=== PATIENT | male | born 1985 | race Caucasian/White ===

== ENCOUNTER 2020-03-08 12:43 | Emergency (ER) | payer BC, SELFPAY ==
[2020-03-08 12:52] VITALS: BP 156/95; PULSE 105; RESP 20; TEMP 36.9; O2SAT 99
--- NOTE | 2020-03-08 13:12 | ED.GENADULT ---
HPI - General Adult General Chief complaint: Allergic Reaction Stated complaint: Swollen upper lip and Cheeks Time Seen by Provider: 03/08/20 13:03 Source: patient and RN notes reviewed Mode of arrival: ambulatory Limitations: no limitations History of Present Illness HPI narrative: Patient presents today complaining of intermittent swelling to his face x2 weeks.This episode started yesterday when he woke up to swelling of his lip. Reports it has improved slightly today. He also reports some hives yesterday that have almost completely resolved. Denies shortness of breath, difficulty swallowing, scratchiness in the throat. Believes his symptoms may be due to extended use of chewing tobacco every day. States similar symptoms have occurred in the past and resolved on their own. He has tried no hxdj-[id number]-gecrivb medication for symptoms prior to arrival.No known allergens. MD complaint: Facial swelling Related Data Home Medications Medication Instructions Recorded Confirmed methylphenidate HCl 10 mg PO TID 06/27/19 06/27/19 omeprazole 20 mg PO DAILY 03/08/20 03/08/20 Allergies Allergy/AdvReac Type Severity Reaction Status Date / Time Penicillins Allergy Unknown Rash Verified 03/08/20 13:18 Review of Systems Review of Systems: Narrative: CONSTITUTIONAL: Denies body aches, fever, chills, or sweats. EYES: Denies visual changes, redness, or discharge. ENT: Denies rhinorrhea, congestion, sore throat, or otalgia.+Facial swelling, lip swelling CARDIOVASCULAR: Denies chest pain, palpitations, or edema. RESPIRATORY: Denies cough or dyspnea. GASTROINTESTINAL: Denies abdominal pain, nausea, vomiting, or diarrhea. GENITOURINARY: Denies dysuria or hematuria. SKIN: Denies rash, itching, or wounds. MUSCULOSKELETAL: Denies back pain, joint pain, or myalgia. NEUROLOGIC: Denies headache, numbness, tingling, or weakness. PSYCH: Denies depression or anxiety. PMFSH Comments At time of signature, I have reviewed and agree with nursing past medical, surgical, social and family history unless otherwise noted. Please see nursing chart for further information. There is no relevant family history pertinent to the presenting complaint Exam Narrative: Exam Narrative: GENERAL: Well-appearing, well-nourished, and in no acute distress. HEAD: Normocephalic, atraumatic. EYES: EOMI. No redness or drainage. Conjunctivae normal. ENT: Mucous membranes pink and moist. Nares clear. No rhinorrhea. TMs normal bilaterally. Throat normal. Uvula midline. Tongue normal. No swelling of the gums. Teeth grossly normal. Very mild swelling of the lips. NECK: Normal AROM. Supple. No lymphadenopathy. CHEST: No respiratory distress. Clear to auscultation. HEART: Regular rate and rhythm. No murmur appreciated. Normal peripheral pulses. EXTREMITIES: Normal range of motion. No edema. SKIN: Warm, dry. Capillary refill normal. Normal skin turgor. 1 small healing hive to right upper arm. NEURO: No focal deficits. Alert and oriented x3. Gait steady. PSYCH: Normal affect. No signs of depression or anxiety. Course Vital Signs Vital signs: Vital Signs Temperature 98.5 F 03/08/20 12:52 Pulse Rate 105 H 03/08/20 12:52 Respiratory Rate 03/08/20 12:52 Blood Pressure 156/95 H 03/08/20 12:52 Pulse Oximetry 99 03/08/20 12:52 Temperature 98.5 F 03/08/20 12:52 Pulse Rate 105 H 03/08/20 12:52 Respiratory Rate 03/08/20 12:52 Blood Pressure 156/95 H 03/08/20 12:52 Pulse Oximetry 99 03/08/20 12:52 Reviewed. Pt has been instructed to follow up with his PCP regarding his elevated blood pressure today. Medical Decision Making Differential Diagnosis Differential Diagnosis: Angioedema, contact dermatitis, anaphylaxis, allergic reaction, hives Vital Signs Vital Signs: Vital Signs Temperature 98.5 F 03/08/20 12:52 Pulse Rate 105 H 03/08/20 12:52 Respiratory Rate 03/08/20 12:52 Blood Pressure 156/95 H 03/08/20 12:52 Pulse O
== END 2020-03-08 13:20 | disposition home or self-care (01) ==
PROVIDERS: Emergency Provider Nurse Practitioner
DX: T78.3XXA Angioneurotic edema, initial encounter (principal); K21.9 Gastro-esophageal reflux disease without esophagitis; F90.9 Attention-deficit hyperactivity disorder, unspecified type
CPT/HCPCS: 99213; G0463

== ENCOUNTER 2023-03-24 08:02 | Emergency (ER) | payer OTHER, SELFPAY ==
[2023-03-24 08:12] VITALS: BP 120/79; PULSE 99; RESP 20; TEMP 36.4; O2SAT 98
--- NOTE | 2023-03-24 08:39 | ED.GENADULT ---
HPI - General Adult General Chief complaint: Unspecified Stated complaint: STD Exposure Source: patient and RN notes reviewed History of Present Illness HPI narrative: 38 yo M presents to urgent care stating he was just told he might have syphilis. Pt states he gave plasma twice last week and when he went today to give again, he was told he might have syphilis. Pt denies any genital lesions, blisters, or rash. Denies any dysuria, penile discharge, fevers, chills, lymph node swelling, abdominal pain, N/V/D, chest pain, or SOB. Pt states he will occasionally get headaches but contributes them to deydration. Pt admits to being homeless currently and recently incarcerated. Related Data Home Medications Medication Instructions Recorded Confirmed omeprazole 20 mg tablet,delayed 20 mg PO DAILY 03/08/20 03/24/23 release Allergies Allergy/AdvReac Type Severity Reaction Status Date / Time Penicillins Allergy Unknown Rash Verified 03/24/23 08:21 Review of Systems Review of Systems: Pertinent positives and pertinent negatives per HPI. PMFSH Comments At the time of my signature, I reviewed and agree with the nursing past medical, surgical, social, and family history. There is no relevant family history pertinent to the patient complaint. Exam Narrative: GENERAL: This is a well-nourished, well-developed patient, in no apparent distress. HEAD: normocephalic, atraumatic. EYES: Sclera clear/white. Vision is grossly intact. EARS: External ears normal, auditory canals clear and without drainage, TMs normal without perforation. Hearing grossly intact. NOSE: External nose normal with no obvious nasal discharge, nares without redness, no rhinorrhea. THROAT: Mucous membranes moist, posterior pharynx clear. NECK: Neck supple, non-tender without lymphadenopathy, masses or thyromegaly. CARDIOVASCULAR: Regular rate and rhythm without murmurs, gallops, or rubs. RESPIRATORY: Clear to auscultation. Breath sounds equal bilaterally. No wheezes, rales, or rhonchi. GASTROINTESTINAL: Abdomen soft, non-tender, nondistended. Bowel sounds are active. No hepato-splenomegaly, or palpable masses. No guarding. SKIN: warm, intact with no suspicious lesions or rash, good texture and turgor. NEURO: awake, alert, and oriented to person, place and time. There were no obvious focal neurologic abnormalities. EXTREMITIES: No clubbing, cyanosis, or edema. No joint tenderness, effusion, or edema noted. BACK: Nontender without deformity or crepitus. No flank tenderness. Course Course Level of Care: Express Care Visit Vital Signs Vital signs: Vital Signs Temperature 97.6 F 03/24/23 08:12 Pulse Rate 99 03/24/23 08:12 Respiratory Rate 20 03/24/23 08:12 Blood Pressure 120/79 03/24/23 08:12 Pulse Oximetry 98 03/24/23 08:12 Oxygen Delivery Room Air 03/24/23 08:12 Temperature 97.6 F 03/24/23 08:12 Pulse Rate 99 03/24/23 08:12 Respiratory Rate 20 03/24/23 08:12 Blood Pressure 120/79 03/24/23 08:12 Pulse Oximetry 98 03/24/23 08:12 Oxygen Delivery Room Air 03/24/23 08:12 Reviewed Medical Decision Making MDM Narrative Medical decision making narrative: Go to the STI clinic as discussed. Be checked as soon as possible for all the sexually transmitted infections. Pt was given the flyer with the STI clinic information on it. Pt was also given money for himself and his girlfriend to catch the bus. Attempted to call clinic for pt and make an appt for pt and it appears pt has left our building without notice. Differential Diagnosis Differential Diagnosis: syphilis, well adult exam, STI Vital Signs Vital Signs: Vital Signs Temperature 97.6 F 03/24/23 08:12 Pulse Rate 99 03/24/23 08:12 Respiratory Rate 20 03/24/23 08:12 Blood Pressure 120/79 03/24/23 08:12 Pulse Oximetry 98 03/24/23 08:12 Oxygen Delivery Room Air 03/24/23 08:12 Temperature 97.6 F 03/24/23 08:12 Pulse Rate
== END 2023-03-24 08:50 | disposition home or self-care (01) ==
PROVIDERS: Emergency Provider Nurse Practitioner Family
DX: Z71.1 Person with feared health complaint in whom no diagnosis is made (principal); Z59.00 Homelessness unspecified
CPT/HCPCS: 99211; G0463

== ENCOUNTER 2025-03-10 05:21 | Emergency (ER) | payer OTHER, SELFPAY ==
--- NOTE | ~2025-03-10 | CT_ITS ---
EXAMINATION: CT shoulder RT w con DATE: 03/10/2025 07:54 INDICATION: Right shoulder pain TECHNIQUE: Computed tomography (CT) of the right shoulder was performed without intravenous contrast. The dose-length product was 361.94 mGy-cm. Automated exposure control and iterative reconstruction t echnique were employed. COMPARISON: Right shoulder series dated 03/10/2025 FINDINGS: There is anatomic alignment. No acute fracture, subluxation or dislocation. There is mild o steoarthritis of the acromioclavicular joint. No significant soft tissue abnormality. No foreign bodi es. IMPRESSION: 1. Mild osteoarthritis of the right acromioclavicular joint. Reviewed, dictated and finalized at location A.
--- NOTE | ~2025-03-10 | XR_ITS ---
XR shoulder RT min 2V 03/10/2025 06:12 Indication: Right shoulder pain after injury Procedure: 2 views right shoulder Comparison: No prior studies for comparison. Findings: Limited study. No acute fractures identified. No subluxation or dislocation. Mild osteoarth ritis of the acromioclavicular joint. Impression: 1: No acute bone or joint abnormality. Reviewed, dictated and finalized at location A. Impression: 1: No acute bone or joint abnormality.
--- OUTSIDE RECORDS SUMMARY | 2025-03-10 05:23 | XMS_ITS | Patient Health Record ---
Author Organization [facility] Address [address] [facility] [address] [place] [address] Care Team Providers Care Lead Web Application Developer Name Role Phone Lisette Pierce Unavailable [phone] Reason For Referral No Information Medications Medication SIG (Take, Route, Frequency, Duration) Notes Start Date End Date Status Methylphenidate HCl 10 MG Oral 12/14/2020 Active Sertraline HCl 25 MG Oral 12/14/2020 Active Immunizations Vaccine Route Administration Date Status Comme nts Influenza virus vaccine, quadrivalent (IIV4), split virus, 0.25 mL dosage Unknown 08/06/2016 Administered Td (adult) preservative free Unknown 05/10/2015 Adminis tered Plan Of Treatment No Information Insurance Providers Payer Name Payer Address Payer Phone Subscriber Number Group Number Insured Name Patient Relationship to Insured Coverage Start Date Coverage End Date [facility] [address] [place] [address] [id number] WANDA ORELLANA Self - patient is the insured
--- OUTSIDE RECORDS SUMMARY | 2025-03-10 05:23 | XMS_ITS | Clinical Summary ---
Author Organization [facility] Address [address] [place] [address] Phone Care Team Providers Care Fern Picker Name Role Phone Provider, None Primary Care Provider Kevon Walter APRN, WOOD SCALER Unavailable [phone] Allergies No known active allergies Medications methylphenidate (RITALIN) 10 MG Tablet Take 10 mg by mouth daily. 7 Active omeprazole (PRILOSEC) 20 MG CAPSULE DELAYED RELEASE Take 20 mg by mouth daily. 7 Active HYDROcodone-franchesca taminophen (NORCO) 5-325 MG Tablet Take 1-2 Tabs by mouth every 4 hours as needed for Pain. 15 Tab 0 7 Active Additional Information Patient not taking.Reported on 12/16/2016 fluticasone (FLONASE) 50 MCG/ACT Suspension 5 7 Active CIPRODEX 0.3-0.1 % Suspension 7 Active methylPREDNISol one (Medrol) 4 MG Tablet Therapy PackIndications :Sciatica of right side Use as per instructions on package. 21 Tablet 3 Active ibuprofen (MOTRIN) 600 MG Tablet Take 1 Tablet by mouth every 8 hours as needed for Moderate or more severe pain. 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 Not on file Not on file Not on file Last Filed Vital Signs Vital Sign Reading Time Taken Comments Blood Pressure 132/86 07/05/2023 2:24 PM HEATING ELEMENT WINDER Pulse 89 07/05/2023 2:24 PM HEATING ELEMENT WINDER Temperature 36.6 C (97.9 F) 07/05/2023 2:24 PM HEATING ELEMENT WINDER Respiratory Rate 18 07/05/2023 2:24 PM HEATING ELEMENT WINDER Oxygen Saturation 98% 07/05/2023 2:24 PM HEATING ELEMENT WINDER Inhaled Oxygen Concentration - - Weight 77.1 kg (170 lb) 03/30/2023 12:03 AM CDT Height 175.3 cm (5' 9) 03/30/2023 12:03 AM CDT Body Mass Index 25.1 03/30/2023 12:03 AM CDT Plan of Treatment Health Maintenance Due Date Last Done Comments Hepatitis C Virus (HCV) Screening 1985 TdaP Immunization 1985 Human Papillomavirus (HPV) Immunization (1 - Male 3-dose series) 2000 Hepatitis B Immunization (1 of 3 - 19+ 3-dose series) 2004 SARS-COV-2 Immunization ( - 2023- season) 2024 Influenza Immunization (#1) 2025 08/06/2016 Respiratory Syncytial Virus (RSV) Immunization (Adult) (1 - 1-dose 75+ series) 2060 DTaP/Tdap/Td Immunization Discontinued 05/10/2015 Meningococcal Immunization (ACWY) Aged Out No longer eligible based on patient's age to complete this topic Pneumococcal Immunization Combined Aged Out No longer eligible based on patient's age to complete this topic Rotavirus Immunization Aged Out No lo nger eligible based on patient's age to complete this topic Insurance [place]ICAID [place] Care Teams Fern Picker Relationship Specialty Start Date End Date Provider, None [place] PCP - General 03/30/23 Kevon Cowan, CAR TESTER, WOOD SCALER [address] [place] [address] Internal Medicine 03/30/23
--- OUTSIDE RECORDS SUMMARY | 2025-03-10 05:23 | XMS_ITS | Clinical Summary ---
Author Organization [facility] Virtual Care Address [address] [place] [phone] Phone Care Team Providers Care Outside Energy Sales Representatives Name Role Phone Miscellaneous, Not In File Primary Care Provider Unavailable Allergies Active Allergy Reactions Criticality Noted Date Comments Penicillins Unknown Patient reports having reaction as a child but does not remember what the reaction was Medications omeprazole (PriLOSEC) 40 mg capsuleIndicati ons:Treatment of Non-Bleeding Gastric Disorder Take 1 capsule (40 mg total) by mouth 2 (two) times a day 60 capsule 1 02/11/2023 Active ibuprofen (ADVIL,MOTRIN) 600 mg tabletIndicatio ns:Pain Take 1 tablet (600 mg total) by mouth every 6 (six) hours as needed for pain 20 tablet 07/06/2023 Active Active Problems Problem Noted Date Diagnosed Date Hepatic lesion 02/11/2023 Assessment & Plan (02/11/2023 1:08 PM CDT): CT 02/08 and 02/10 with 1.4 cm hypodense hepatic lesion; recommend outpatient follow up Substance abuse 02/10/2023 Assessment & Plan (02/11/2023 3:19 AM CDT): Patient reported occasional meth use - UDS 02/10 + for amphetamines - CD consult placed and seen Ingestion of corrosive chemi irasema, accidental or unintentional, initial encounter 02/09/2023 Assessment & Plan (02/11/2023 1:07 PM CDT): - Accidental ingestion of hydrochloric acid on 02/09 by it falling into his mouth- recommend sitter and psych consult - EGD at OSH demonstrated grade 2 ingestion injury in proximal and mid esophagus, grade 3a ingestion injury at multiple areas in the distal esophagus and diffuse severe mucosal changes with necrosis found in the gastric antrum and in the prepyloric region of the stomach. - CT Chest 02/09 - diffuse thickening of the wall of the mid to distal esophagus. No evidence of perforation. CT Abdomen - diffuse wall thickening of the distal esophagus - NPO - PPI - GI consult - Esophagram - CT C/A/P 02/10 - No esophageal perforation. Unchanged distal esophageal thickening. Indeterminate 1.4 cm hypodense hepatic lesion 02/11 patient started on diet, endorsing pain/discomfort with eating continue twice daily PPI and Carafate; plan for follow up in approximately 6 weeks for repeat EGD Rectal bleeding 02/06/2020 Overview (02/06/2020): Added automatically from request for surgery [id number] Hemorrhage of rectum and anus 01/03/2020 Overview (01/03/2020): Added automatically from request for surgery [id number] Shoulder pain 09/25/2014 Overview (11/21/2016): Shoulder pain Attention deficit disorder (ADD) without hyperac tivity 08/29/2014 Overview (11/21/2016): ADD Attention deficit disorder 08/29/2014 Overview (11/21/2016): ADHD Medical History Medical History Date Comments Hx Other Medical Dislocated [facility] 11-25-10.; Comments: BILLY 09/25/2014 - Family History Medical History Relation Name Comments Other Mother Age 59 with ADD /ADHD; Relation Name Status Comments Mother Social History Tobacco Use Types Packs/Day Years Used Date Smoking Tobacco: Never Smokeless Tobacco: Never Tobacco Cessation:Counseling Given: Not Answered AUDIT-C Answer Date Recorded Q1: How often do you have a drink containing alcohol? Never 02/09/2023 Q2: How many drinks containi ng alcohol do you have on a typical day when you are drinking? Patient does not drink Q3: How often do you have si x or more drinks on one occasion? Never 02/09/2023 Personal Safety Answer Date Recorded Have you ever been in or are you currently in a harmful physical or emotional relationship or is someone making you feel afraid or unsafe? Denies 07/05/2023 Sex and Gender Information Value Date Recorded Sex Assigned at Not on file Legal Sex Male 3:32 AM RAND MAKER Gender Identity Not on file Sexual Orientation Not on file Obstetrics History Last Filed Vital Signs Vital Sign Reading Time Taken Comments Blood Pressure 130/110 07/05/2023 10:56 PM RAND MAKER Pulse 77 07/05/2023 10:56 PM RAND MAKER Temperature 36 C (96.8 F) 07/05/2023 10:56 PM RAND MAKER Respiratory Rate 18 07/05/2023 10:56 PM RAND MAKER Oxygen Saturation 100% 07/05/2023 10:56 PM RAND MAKER Inhaled Oxygen Concentration - - Weight 70.3 kg (155 lb) 07/05/2023 10:56 PM RAND MAKER Height 175.3 cm (5' 9) 02/10/2023 12:15 AM CDT Body Mass Index 22.89 02/10/2023 12:15 AM CDT Plan of Treatment Health Maintenance Due Date Last Done Comments Depression Screening 1985 Hepatitis C Screening 1985 Varicella Vaccines (1 of 2 - 13+ 2-dose series) 1997 Hepatitis B Screening 2003 Regular Well Visit/Exam 18-64 2003 Pneumococcal vaccine <65 (1 of 2 - PCV) 2004 HPV Vaccines (1 - 3-dose SCDM series) 2012 DTaP/Tdap/Td Vaccine (1 - Tdap) 05/11/2015 5 Influenza Vaccine (#1) 2025 08/06/2016 Insurance [employer] [facility] [employer] [facility] IDCT Advance Directives For more information, please contact: [phone] * Full Code (Latest Code Status on File) Date Activated Date Inactivated Comments 02/10/2023 12:18 AM 02/11/2023 9:11 PM * Full Code Date Activated Date Inactivated Comments 02/09/2023 2:57 PM 02/09/2023 11:47 PM * Full Code Date Activated Date Inactivated Comments 02/09/2023 2:43 PM 02/09/2023 2:57 PM Care Teams Outside Energy Sales Representatives Relationship Specialty Start Date End Date Miscellaneous, Not In File PCP - General 12/13/16
--- OUTSIDE RECORDS SUMMARY | 2025-03-10 05:23 | XMS_ITS | Referral Summary ---
Author Organization [facility] Virtual Care Address [address] [place] [phone] Phone Care Team Providers Care Plant Operations Coordinator Name Role Phone Miscellaneous, Not In File [...] (02/06/2020): Added automatically from request for surgery [id number] Hemorrhage of rectum and anus 01/03/2020 Overview (01/03/2020): Added automatically from request for surgery [id number] Shoulder pain 09/25/2014 Overview (11/21/2016): Shoulder pain Attention deficit disorder (ADD) without hyperac tivity 08/29/2014 Overview (11/21/2016): ADD Attention deficit disorder 08/29/2014 Overview (11/21/2016): ADHD Social History Tobacco Use Types Packs/Day Years [...] on file Legal Sex Male 3:32 AM RELATIONS LIAISON Gender Identity Not on file Sexual Orientation Not on file Last Filed Vital Signs Vital Sign Reading Time Taken Comments Blood Pressure 130/110 07/05/2023 10:56 PM RELATIONS LIAISON Pulse 77 07/05/2023 10:56 PM RELATIONS LIAISON Temperature 36 C (96.8 F) 07/05/2023 10:56 PM RELATIONS LIAISON Respiratory Rate 18 07/05/2023 10:56 PM RELATIONS LIAISON Oxygen Saturation 100% 07/05/2023 10:56 PM RELATIONS LIAISON Inhaled Oxygen Concentration - - Weight 70.3 kg (155 lb) 07/05/2023 10:56 PM RELATIONS LIAISON Height 175.3 cm (5' 9) 02/10/2023 12:15 AM CDT Body Mass Index 22.89 02/10/2023 12:15 AM CDT Plan of Treatment Not on file Insurance [facility] AETNA [facility] IDPA Advance Directives For more information, please contact: [phone] * Full Code (Latest Code Status on File) Date Activated Date Inactivated Comments 02/10/2023 12:18 AM 02/11/2023 9:11 PM * Full Code Date Activated Date Inactivated Comments 02/09/2023 2:57 PM 02/09/2023 11:47 PM * Full Code Date Activated Date Inactivated Comments 02/09/2023 2:43 PM 02/09/2023 2:57 PM Care Teams Plant Operations Coordinator Relationship Specialty Start Date End Date Miscellaneous, Not In File PCP - General 12/13/16
[2025-03-10 05:40] VITALS: BP 151/104; PULSE 94; RESP 19; TEMP 36.9; O2SAT 97
[2025-03-10] MEDS: HYDROmorphone HCL INJ (*CRX) 2 MG/ML VIAL 0.5 MG IM (05:47)
--- OUTSIDE RECORDS SUMMARY | 2025-03-10 05:47 | XMS_ITS | Clinical Summary ---
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 Not on file Not on file Last Filed Vital Signs Vital Sign Reading Time Taken Comments Blood Pressure 132/86 07/05/2023 2:24 PM CHILD CARE ASSOCIATE Pulse 89 07/05/2023 2:24 PM CHILD CARE ASSOCIATE Temperature 36.6 C (97.9 F) 07/05/2023 2:24 PM CHILD CARE ASSOCIATE Respiratory Rate 18 07/05/2023 2:24 PM CHILD CARE ASSOCIATE Oxygen Saturation 98% 07/05/2023 2:24 PM CHILD CARE ASSOCIATE Inhaled Oxygen Concentration - - Weight 77.1 [...] this topic Insurance MEDICAID [place] Care Teams Communications Officer Relationship Specialty Start Date End Date Provider, None [place] PCP - General 03/30/23 Kevon Cowan, SENIOR C WEB DEVELOPER, JACQUARD FIXER [address] [place] [address] Internal Medicine 03/30/23
--- OUTSIDE RECORDS SUMMARY | 2025-03-10 05:47 | XMS_ITS | Clinical Summary ---
Author Organization [facility] Virtual Care Address [address] [place] [phone] Phone Care Team Providers Care Cigar Head Holer Name Role Phone Miscellaneous, Not In File [...] (02/06/2020): Added automatically from request for surgery [id number] Hemorrhage of rectum and anus 01/03/2020 Overview (01/03/2020): Added automatically from request for surgery [id number] Shoulder pain 09/25/2014 Overview (11/21/2016): Shoulder pain [...] on file Legal Sex Male 3:32 AM SHEET METAL ERECTOR Gender Identity Not on file Sexual Orientation Not on file Obstetrics History Last Filed Vital Signs Vital Sign Reading Time Taken Comments Blood Pressure 130/110 07/05/2023 10:56 PM SHEET METAL ERECTOR Pulse 77 07/05/2023 10:56 PM SHEET METAL ERECTOR Temperature 36 C (96.8 F) 07/05/2023 10:56 PM SHEET METAL ERECTOR Respiratory Rate 18 07/05/2023 10:56 PM SHEET METAL ERECTOR Oxygen Saturation 100% 07/05/2023 10:56 PM SHEET METAL ERECTOR Inhaled Oxygen Concentration - - Weight 70.3 kg (155 lb) 07/05/2023 10:56 PM SHEET METAL ERECTOR Height 175.3 cm (5' 9) 02/10/2023 12:15 [...] Vaccine (#1) 2025 08/06/2016 Insurance AETNA BETTER [facility] AETNA [facility]TER [facility] IDIL Advance Directives For more information, please contact: [phone] * Full Code (Latest Code Status on File) Date Activated Date Inactivated Comments 02/10/2023 12:18 AM 02/11/2023 9:11 PM * Full Code Date Activated Date Inactivated Comments 02/09/2023 2:57 PM 02/09/2023 11:47 PM * Full Code Date Activated Date Inactivated Comments 02/09/2023 2:43 PM 02/09/2023 2:57 PM Care Teams Cigar Head Holer Relationship Specialty Start Date End Date Miscellaneous, Not In File PCP - General 12/13/16
--- OUTSIDE RECORDS SUMMARY | 2025-03-10 05:47 | XMS_ITS | Referral Summary ---
Author Organization [facility] Virtual Care Address [address] [place] [phone] Phone Care Team Providers Care Software Database Architect Name Role Phone Miscellaneous, Not In File [...] (02/06/2020): Added automatically from request for surgery [id number] Hemorrhage of rectum and anus 01/03/2020 Overview (01/03/2020): Added automatically from request for surgery [id number] Shoulder pain 09/25/2014 Overview (11/21/2016): Shoulder pain [...] on file Legal Sex Male 3:32 AM FAMILY PRACTICE PHYSICIAN ASSISTANT Gender Identity Not on file Sexual Orientation Not on file Last Filed Vital Signs Vital Sign Reading Time Taken Comments Blood Pressure 130/110 07/05/2023 10:56 PM FAMILY PRACTICE PHYSICIAN ASSISTANT Pulse 77 07/05/2023 10:56 PM FAMILY PRACTICE PHYSICIAN ASSISTANT Temperature 36 C (96.8 F) 07/05/2023 10:56 PM FAMILY PRACTICE PHYSICIAN ASSISTANT Respiratory Rate 18 07/05/2023 10:56 PM FAMILY PRACTICE PHYSICIAN ASSISTANT Oxygen Saturation 100% 07/05/2023 10:56 PM FAMILY PRACTICE PHYSICIAN ASSISTANT Inhaled Oxygen Concentration - - Weight 70.3 kg (155 lb) 07/05/2023 10:56 PM FAMILY PRACTICE PHYSICIAN ASSISTANT Height 175.3 cm (5' 9) 02/10/2023 12:15 AM CDT Body Mass Index 22.89 02/10/2023 12:15 AM CDT Plan of Treatment Not on file Insurance [facility] [employer] [facility] [employer] Advance Directives For more information, please contact: [phone] * Full Code (Latest Code Status on File) Date Activated Date Inactivated Comments 02/10/2023 12:18 AM 02/11/2023 9:11 PM * Full Code Date Activated Date Inactivated Comments 02/09/2023 2:57 PM 02/09/2023 11:47 PM * Full Code Date Activated Date Inactivated Comments 02/09/2023 2:43 PM 02/09/2023 2:57 PM Care Teams Software Database Architect Relationship Specialty Start Date End Date Miscellaneous, Not In File PCP - General 12/13/16
--- NOTE | 2025-03-10 05:57 | ED_ITS ---
HPI - Extremity Injury (Upper) General Chief Complaint: Extremity Injury, Upper <Melia Campo MD - Last Filed: 03/10/25 07:54> Stated Complaint: R shoulder pain <Melia Campo MD - Last Filed: 03/10/25 07:54> Time Seen by Provider: 03/10/25 05:27 <Melia Campo MD - Last Filed: 03/10/25 07:54> Source: patient <Melia Campo MD - Last Filed: 03/10/25 07:54> Mode of arrival: ambulatory <Melia Campo MD - Last Filed: 03/10/25 07:54> Limitations: no limitations <Melia Campo MD - Last Filed: 03/10/25 07:54> History of Present Illness HPI narrative: Patient presents with acute onset right shoulder sharp pain after reaching and twisting or from lying object last night approximately 11:00 p.m.. He states it feels like when he dislocated his left shoulder in 2007. No previous surgical interventions or infections with orthopedic surgery either. At 1st he denies any paresthesias however when he then states that when he was trying to touch over his deltoid earlier, it felt differently. No paresthesias. He has not taken any pain medications prior to arrival. He is having decreased range of motion. He tried taking a hot bath. <Melia Campo MD - Last Filed: 03/10/25 07:54> Related Data Home Medications: Home Medications ?Medication ?Instructions ?Recorded ?Confirmed ?Last Taken ?Type omeprazole 20 mg tablet,delayed 20 mg PO DAILY 03/08/20 03/24/23 Unknown History release <Melia Campo MD - Last Filed: 03/10/25 07:54> Allergies/Adverse Reactions: Allergies Allergy/AdvReac Type Severity Reaction Status Date / Time Penicillins Allergy Unknown Rash Verified 03/10/25 05:22 <Melia Campo MD - Last Filed: 03/10/25 07:54> FOR[facility]LY [facility] Past Medical History Medical History: Medical History Dislocation of left shoulder joint 2007 <Melia Campo MD - Last Filed: 03/10/25 07:54> Exam 2 Narrative: GENERAL: well-nourished, in acute distress. HEAD: Normocephalic, atraumatic. EYES: Non injected, non icteric ENT: Nares clear, no rhinorrhea or epistaxis. Gross auditory acuity intact. NECK: Supple. No meningismus. CHEST: Speaking in full sentences. No respiratory distress. HEART: Regular rate and rhythm. 2+ radial pulse on the right. ABDOMEN: Soft, nondistended. EXTREMITIES: No upper extremity edema. Patient is holding his right arm flexed at the elbow and with limited range of motion. He exhibits point tenderness at the anterior aspect/glenohumoral joint SKIN: Warm, dry, no rash. In particular no ecchymosis, laceration, vesicles, erythema NEURO: Alert and oriented. Answering questions. Following commands. Normal speech without aphasia or dysarthria. Patient denies any paresthesias throughout the right arm on my exam although he states he experiences diminished sensation overlying deltoid when he palpates PSYCH: Congruent mood and affect. <Melia Campo MD - Last Filed: 03/10/25 07:54> Course Course Emergency Course: 40-year-old male present to the emergency department for evaluation for shoulder pain. Patient's care was signed out to me pending CT scan. X-ray and CT scan were negative for acute fracture dislocation. Patient was provided a sling for comfort and outpatient follow-up with Orthopedics. All questions concerns were addressed. <Oliver Brice MD - Last Filed: 03/10/25 12:58> Vital Signs Vital signs: Vital Signs Temperature 98.5 F 03/10/25 05:40 Pulse Rate 94 03/10/25 05:40 Respiratory Rate 19 03/10/25 05:40 Blood Pressure 151/104 H 03/10/25 05:40 Pulse Oximetry 97 03/10/25 05:40 Oxygen Delivery Room Air 03/10/25 05:40 Temperature 98.5 F 03/10/25 05:40 Pulse Rate 102 H 03/10/25 07:28 Respiratory Rate 18 03/10/25 07:28 Blood Pressure 161/112 H 03/10/25 07:28 Pulse Oximetry 100 03/10/25 07:28 Oxygen Delivery Room Air 03/10/25 05:40 <Melia Campo MD - Last Filed: 03/10/25 07:54> Vital Signs Temperature 98.5 F 03/10/25 05:40 Pulse Rate 94 03/10/25 05:40 Respiratory Rate 19 03/10/25 05:40 Blood Pressure 151/104 H 03/10/25 05:40 Pulse Oximetry 97 03/10/25 05:40 Oxygen Delivery Room Air 03/10/25 05:40 Temperature 98.5 F 03/10/25 05:40 Pulse Rate 102 H 03/10/25 07:28 Respiratory Rate 18 03/10/25 07:28 Blood Pressure 161/112 H 03/10/25 07:28 Pulse Oximetry 100 03/10/25 07:28 Oxygen Delivery Room Air 03/10/25 05:40 <Oliver Brice MD - Last Filed: 03/10/25 12:58> MDM - Extremity Injury (Upper) MDM Narrative Medical decision making narrative: Patient presents with acute onset right shoulder pain. He notes he experienced a sharp pain after reaching and twisting for a falling object. In the emergency department he is afebrile with vital signs notable for hypertension. Patient given IM Dilaudid. He is holding his arm with palpable flexed and with limited movement at the shoulder joint. Plain film imaging is negative however he has distinct localized pinpoint tenderness along the glenohumeral joint. He also endorses subjective paresthesias over the deltoid on his touch. Will proceed with CT imaging. Microcytic anemia no prior for comparison. Mildly elevated CRP and ESR. Patient signed out to oncoming ED physician pending CT imaging. <Melia Campo MD - Last Filed: 03/10/25 07:54> Differential Diagnosis Differential diagnosis: Likely dislocation of shoulder, fracture of humerus and other (tendon/ligamentous injury; tendinopathy; rotator cuff injury; bicep tear) < Melia Campo MD - Last Filed: 03/10/25 07:54> Lab Data Attestation: I reviewed the patient's lab results. <Melia Campo MD - Last Filed: 03/10/25 07:54> Result diagrams: 03/10/25 06:49 03/10/25 06:49 <Melia Campo MD - Last Filed: 03/10/25 07:54> Labs: Lab Results 03/10/25 Range/Units 06:49 WBC 8.5 (4.5-10.0) K/mm3 RBC 5.18 (4.6-6.20) M/mm3 Hgb 12.7 L (14.0-18.0) g/dL Hct 39.5 L (42.0-52.0) % MCV 76.3 L (80-100) fl MCH 24.5 L (26-34) pg MCHC 32.2 (32-36) g/dl RDW 13.8 (11.5-14.5) % Plt Count 300 (150-375) k/mm3 MPV 8.5 (7.4-10.4) fl Immature Gran % (Auto) 0.5 (0-0.5) % Neut % (Auto) 65.8 (45.5-73.1) % Lymph % (Auto) 21.8 (18.3-44.2) % [place] % (Auto) 10.4 H (2.6-8.5) % Eos % (Auto) 0.9 (0-4.4) % Baso % (Auto) 0.6 (0.2-1.2) % Lymph # (Auto) 1.86 (0.9-3.2) K/mm3 [place] # (Auto) 0.9 H (0.1-0.6) K/mm3 Eos # (Auto) 0.1 (0-0.3) K/mm3 Baso # (Auto) 0.1 (0.0-0.1) K/mm3 Abs Immat Gran (auto) 0.04 H (0.00-0.031) K/mm3 Absolute Neuts (auto) 5.6 (1.3-6.7) K/mm3 Absolute Nucleated RBC 0.000 (0.0-0.012) K/mm3 Nucleated RBC % 0.0 (0.0-0.2) % ESR 22 H (0-20) mm/hr Sodium 137 (137-145) mmol/L Potassium 4.1 (3.4-5.0) mmol/L Chloride 107 (98-107) mmol/L Carbon Dioxide 23 (22-30) mmol/L Anion Gap 7 (4-12) mmol/L BUN 12 (9-20) mg/dL Creatinine 0.81 (0.7-1.3) mg/dL Estim Creat Clear Calc 106 ml/min Estimated GFR > 60 (59 - ) Glucose 113 H (65-110) mg/dL Calcium 8.7 (8.4-10.2) mg/dL C-Reactive Protein 1.2 H (<1.0) mg/dL <Melia Campo MD - Last Filed: 03/10/25 07:54> Lab Results 03/10/25 Range/Units 06:49 WBC 8.5 (4.5-10.0) K/mm3 RBC 5.18 (4.6-6.20) M/mm3 Hgb 12.7 L (14.0-18.0) g/dL Hct 39.5 L (42.0-52.0) % MCV 76.3 L (80-100) fl MCH 24.5 L (26-34) pg MCHC 32.2 (32-36) g/dl RDW 13.8 (11.5-14.5) % Plt Count 300 (150-375) k/mm3 MPV 8.5 (7.4-10.4) fl Immature Gran % (Auto) 0.5 (0-0.5) % Neut % (Auto) 65.8 (45.5-73.1) % Lymph % (Auto) 21.8 (18.3-44.2) % [place] % (Auto) 10.4 H (2.6-8.5) % Eos % (Auto) 0.9 (0-4.4) % Baso % (Auto) 0.6 (0.2-1.2) % Lymph # (Auto) 1.86 (0.9-3.2) K/mm3 [place] # (Auto) 0.9 H (0.1-0.6) K/mm3 Eos # (Auto) 0.1 (0-0.3) K/mm3 Baso # (Auto) 0.1 (0.0-0.1) K/mm3 Abs Immat Gran (auto) 0.04 H (0.00-0.031) K/mm3 Absolute Neuts (auto) 5.6 (1.3-6.7) K/mm3 Absolute Nucleated RBC 0.000 (0.0-0.012) K/mm3 Nucleated RBC % 0.0 (0.0-0.2) % ESR 22 H (0-20) mm/hr Sodium 137 (137-145) mmol/L Potassium 4.1 (3.4-5.0) mmol/L Chloride 107 (98-107) mmol/L Carbon Dioxide 23 (22-30) mmol/L Anion Gap 7 (4-12) mmol/L BUN 12 (9-20) mg/dL Creatinine 0.81 (0.7-1.3) mg/dL Estim Creat Clear Calc 106 ml/min Estimated GFR > 60 (59 - ) Glucose 113 H (65-110) mg/dL Calcium 8.7 (8.4-10.2) mg/dL C-Reactive Protein 1.2 H (<1.0) mg/dL <Oliver Brice MD - Last Filed: 03/10/25 12:58> Imaging Data Radiologist's impression: Impressions Shoulder X-Ray 03/10/25 06:15 Impression: 1: No acute bone or joint abnormality. <Melia Campo MD - Last Filed: 03/10/25 07:54> Impressions Shoulder X-Ray 03/10/25 06:15 Impression: 1: No acute bone or joint abnormality. Impressions Shoulder X-Ray 03/10/25 06:15 Impression: 1: No acute bone or joint abnormality. Shoulder CT 03/10/25 07:59 IMPRESSION: 1. Mild osteoarthritis of the right acromioclavicular joint. <Oliver Brice MD - Last Filed: 03/10/25 12:58> Discharge Plan Discharge Clinical Impression: Microcytic anemia, Acute pain of right shoulder <Melia Campo MD - Last Filed: 03/10/25 07:54> Patient Disposition: Still a Patient <Melia Campo MD - Last Filed: 03/10/25 07:54> Condition: Stable <Melia Campo MD - Last Filed: 03/10/25 07:54> Instructions: How to Use a Sling (ED), Shoulder Pain (ED) <Melia Campo MD - Last Filed: 03/10/25 07:54> Additional Instructions: X-ray and CT were negative for fracture or dislocation. Tylenol and ibuprofen for pain control. Sling for comfort. Have close follow-up with Orthopedics. <Melia Campo MD - Last Filed: 03/10/25 07:54> Patient Language: Japanese <Melia Campo MD - Last Filed: 03/10/25 07:54> Prescriptions: No Action omeprazole 20 mg Tablet,Delayed Release (Dr/Ec) 20 mg PO DAILY <Melia Campo MD - Last Filed: 03/10/25 07:54> Follow-up/Referrals: Zheng Rios MD [Physician] - PHYSICIAN,SURVEYING OR SPATIAL SCIENCE TECHNICIAN [Primary Care Provider] - <Melia Campo MD - Last Filed: 03/10/25 07:54>
[2025-03-10 06:57] LABS: Hematocrit 39.5 % (42.0-52.0); Hemoglobin 12.7 g/dL (14.0-18.0); Immature Granulocyte Percent A 0.5 % (0-0.5); Lymphocytes Absolute Auto 1.86 K/mm3 (0.9-3.2); Mean Corpuscular HGB Conc 32.2 g/dl (32-36); Mean Corpuscular Hemoglobin 24.5 pg (26-34); Mean Corpuscular Volume 76.3 fl (80-100); Nucleated Red Blood Cells Absolute Auto 0.000 K/mm3 (0.0-0.012); Nucleated Red Blood Cells Perc 0.0 % (0.0-0.2); Platelet Count Result 300 k/mm3 (150-375); Red Blood Count 5.18 M/mm3 (4.6-6.20); White Blood Count 8.5 K/mm3 (4.5-10.0)
[2025-03-10] MEDS: diazePAM INJ (*CRX) 10 MG/2 ML SYRINGE 2.5 MG IV PUSH (07:14)
[2025-03-10 07:25] LABS: Anion Gap 7 mmol/L (4-12); Blood Urea Nitrogen 12 mg/dL (9-20); CRP 1.2 mg/dL (<1.0); Calcium 8.7 mg/dL (8.4-10.2); Carbon Dioxide 23 mmol/L (22-30); Chloride 107 mmol/L (98-107); Estimated CRCL calculation 106 ml/min; Estimated Glomerular Filt Rate > 60; Glucose 113 mg/dL (65-110); Potassium 4.1 mmol/L (3.4-5.0); Sodium 137 mmol/L (137-145)
[2025-03-10 07:28] VITALS: BP 161/112; PULSE 102; RESP 18; O2SAT 100
== END 2025-03-10 08:56 | disposition home or self-care (01) ==
PROVIDERS: Emergency Provider Student in an Organized Health Care Education/Training Program
DX: M25.511 Pain in right shoulder (principal); D50.9 Iron deficiency anemia, unspecified; M19.011 Primary osteoarthritis, right shoulder
CPT/HCPCS: 36415; 73030; 73201; 80048; 85025; 85652; 86140; 96372; 96374; 99284; A4565; J1171; J3360; Q9967